=== PATIENT | male | born 1990 | race Two or more races ===

== ENCOUNTER 2024-10-10 06:52 | Emergency (ER) | payer MEDICAID, SELFPAY ==
[2024-10-10 07:01] VITALS: PULSE 76; RESP 16; O2SAT 97
[2024-10-10 07:17] VITALS: BP 131/91; PULSE 79; RESP 18; TEMP 36.4; O2SAT 96; BMI 34.1
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
[2024-10-10] MEDS: KETOROLAC INJ 60 MG/2 ML VIAL 30 MG IM (09:01)
== END 2024-10-10 09:22 | disposition home or self-care (01) ==
PROVIDERS: Emergency Provider Emergency Medicine; PCP Family Medicine
DX: S29.012A Strain of muscle and tendon of back wall of thorax, initial encounter (principal); V89.9XXA Person injured in unspecified vehicle accident, initial encounter
CPT/HCPCS: 71045; 96372; 99283; J1885